=== PATIENT | female | born 1990 | race Caucasian/White ===

== ENCOUNTER 2020-04-28 15:02 | Emergency (ER) | payer SELFPAY ==
[2020-04-28 15:42] LABS: #Basophils 0.1 thou/uL (0.0-0.2); #Eosinphils 0.1 thou/uL (0.0-0.7); #Lymphocytes 1.5 thou/uL (1.20-3.40); #Monocytes 0.4 thou/uL (0.11-0.59); #Neutrophils 7.6 thou/uL (1.40-6.50); %Basophils 0.6 % (0.0-1.0); %Eosinophils 0.6 % (0.0-10.0); %Lymphocytes 15.6 % (21.0-51.0); %Monocytes 3.9 % (0.0-10.0); %Neutrophils 79.3 % (42.0-75.0); Hemoglobin 12.2 g/dL (12.0-16.0); Mean Corpuscular HGB CONC 31.9 g/dL (32.0-36.0); Mean Corpuscular Hemoglobin 28.8 pg (27.0-31.0); Mean Corpuscular Volume 90.3 fL (78.0-98.0); Mean Platelet Volume 8.1 fL (7.4-10.4); Platelet Count 226 thou/uL (130-400); RBC Distribution Width 12.6 % (11.5-14.5); Red Blood Cell (RBC) Count 4.24 mill/uL (4.20-5.40); White Blood Cell (WBC) Count 9.6 thou/uL (4.8-10.8)
[2020-04-28 15:45] LABS: ALT (SGPT) 14 U/L (8-55); AST (SGOT) 17 U/L (5-34); Albumin 3.8 g/dL (3.5-5.0); Alkaline Phosphatase 66 U/L (40-110); Anion Gap 16 mmol/L (10-20); BUN (Urea Nitrogen) 10 mg/dL (7.0-18.7); Bilirubin, Total 0.3 mg/dL (0.2-1.2); Calc. Creatinine Clearance 0 mL/min (70-130); Calcium 8.5 mg/dL (7.8-10.44); Carbon Dioxide 20 mmol/L (22-29); Chloride 109 mmol/L (98-107); Globulin 2.8 g/dL (2.4-3.5); Glucose 94 mg/dL (70-105); Potassium 4.1 mmol/L (3.5-5.1); Protein, Total 6.6 g/dL (6.0-8.3); Sodium 141 mmol/L (136-145)
[2020-04-28 15:48] LABS: BHCG - Serum Negative (NEGATIVE); Pregs Control Bar Appear? YES (CONTROL BAR)
[2020-04-28] MEDS ORDERED: Ketorolac Tromethamine 30 MG/ML VIAL ONE (15:52)
--- NOTE | 2020-04-28 15:53 | RAD ---
EXAM: Chest PA and lateral: HISTORY: Chest pain COMPARISON: none FINDINGS: Lung nix are clear. Vascular markings are normal. Heart and mediastinum appear unremarkable. Osseous structures are unremarkable. IMPRESSION: Unremarkable chest
[2020-04-28 16:16] LABS: Bilirubin Negative (Negative); Blood, Urine Negative (Negative); Clarity Clear (Clear); Glucose, Urine (Dipstick) Negative (Negative); Ketone, Urine Negative (Negative); Leukocyte Negative (Negative); Nitrite Negative (Negative); Protein, Urine (Dipstick) Negative (Neg-Trace); Urobilinogen 0.2 mg/dL (Less than 2); pH, Urine 7.5 (5.0-9.0)
[2020-04-28] MEDS ORDERED: Morphine 4 MG/ML VIAL ONE (16:40)
[2020-04-28] MEDS ORDERED: Ondansetron PF 4 MG/2 ML Vial ONE (16:40)
== END 2020-04-28 17:21 | disposition short-term general hospital (02) ==
LOC: NAV ERS 15:02
DX: R10.31 Right lower quadrant pain (principal); M54.5 Low back pain; M54.6 Pain in thoracic spine; I10 Essential (primary) hypertension
CPT/HCPCS: 71046; 80053; 81003; 84484; 84703; 85025; 93005; 96374; 96375; J1885; J2270; J2405